=== PATIENT | male | born 1970 | race Caucasian/White ===

== ENCOUNTER 2017-01-04 20:31 | Emergency (ER) | payer BC ==
[2017-01-04 20:40] VITALS: BMI 31.1
--- NOTE | 2017-01-04 20:41 | PDOC ---
History of Present Illness - General History Source: Patient Exam Limitations: No Limitations - History of Present Illness Initial Comments: 01/04/17 20:44 The patient is a 46 year old male with no significant past medical history, who presents to the ED s/p cat bite on right 5th digit last night. Patient states he was unexpectedly bit by his house cat last night. He states his cat is up to date with all its immunizations. Patient complains of chills and 101.7 fever since last night. He had taken Augmentin 875 mg at 6:30 AM and 11 AM this morning with little to no alleviation Patient denies chest pain, headache, dizziness, lightheadedness, nausea, vomiting, diarrhea. Patient denies any other s PCP: Dr. Villalta ([phone]) <Gordy Ceron - Last Filed: 01/04/17 20:44> <Gibson Sanchez - Last Filed: 01/04/17 22:21> - General Chief Complaint: Bite Stated Complaint: BIT BY CAT Past History <Gordy Ceron - Last Filed: 01/04/17 20:44> - Past Medical History Other medical history: DENIES - Immunization History Immunization Up to Date: Yes - Psycho/Social/Smoking Cessation Hx Anxiety: No Suicidal Ideation: No Smoking History: Never smoked Have you smoked in the past 12 months: No Information on smoking cessation initiated: No Hx Alcohol Use: No Drug/Substance Use Hx: No Substance Use Type: None <Gibson Sanchez - Last Filed: 01/04/17 22:21> - Past Medical History Allergies/Adverse Reactions: Allergies Allergy/AdvReac Type Severity Reaction Status Date / Time No Known Allergies Allergy Verified 01/04/17 20:33 Home Medications: Ambulatory Orders NK [No Known Home Medication] 01/04/17 Review of Systems - Review of Systems Comments:: 01/04/17 20:44 GENERAL/CONSTITUTIONAL: + fever. + chills. No weakness. HEAD, EYES, EARS, NOSE AND THROAT: No change in vision. No ear pain or discharge. No sore throat. CARDIOVASCULAR: No chest pain or shortness of breath. RESPIRATORY: No cough, wheezing, or hemoptysis. GASTROINTESTINAL: No nausea, vomiting, diarrhea or constipation. GENITOURINARY: No dysuria, frequency, or change in urination. MUSCULOSKELETAL: No joint or muscle swelling or pain. No neck or back pain. SKIN: + redness and swelling to 5th digit of the right hand. NEUROLOGIC: No headache, vertigo, loss of consciousness, or change in strength/ sensation. ENDOCRINE: No increased thirst. No abnormal weight change. HEMATOLOGIC/LYMPHATIC: No anemia, easy bleeding, or history of blood clots. ALLERGIC/IMMUNOLOGIC: No hives or skin allergy. <Gordy Ceron - Last Filed: 01/04/17 20:44> *Physical Exam - Vital Signs Last Vital Signs Temp Pulse Resp BP Pulse Ox 100.5 F H 108 H 16 148/103 99 01/04/17 20:33 01/04/17 20:33 01/04/17 20:33 01/04/17 20:33 01/04/17 20:33 - Physical Exam Comments: 01/04/17 20:45 GENERAL: Awake, alert, and fully oriented, in no acute distress HEAD: No signs of trauma EYES: PERRLA, EOMI, sclera anicteric, conjunctiva clear ENT: Auricles normal inspection, hearing grossly normal, nares patent, oropharynx clear without exudates. Moist mucosa NECK: Normal ROM, supple, no lymphadenopathy, JVD, or masses LUNGS: Breath sounds equal, clear to auscultation bilaterally. No wheezes, and no crackles HEART: Regular rate and rhythm, normal S1 and S2, no murmurs, rubs or gallops ABDOMEN: Soft, nontender, normoactive bowel sounds. No guarding, no rebound. No masses EXTREMITIES: Redness and swelling to the palmar aspect of the 5th digit of the right hand without any canaval 4 signs of flexor tenosynovitis. No axillary adenopathy and lymphangitis. Rest of extremities is normal. NEUROLOGICAL: Cranial nerves II through XII grossly intact. Normal speech, normal gait SKIN: Warm, Dry, normal turgor, no rashes or lesions noted. <Gordy Ceron - Last Filed: 01/04/17 20:44> - Vital Signs Last Vital Signs Temp Pulse Resp BP Pulse Ox 100.5 F H 108 H 16 148/103 99 01/04/17 20:33 01/04/17 20:33 01/04/17 20:33 01/04/17 20:33 01/04/17 20:33 <Gibson Sanchez - Last Filed: 01/04/17 22:21> ED Treatment Course - LABORATORY CBC & Chemistry Diagram: 01/04/17 20:45 01/04/17 20:45 <Gibson Sanchez - Last Filed: 01/04/17 22:21> *DC/Admit/Observation/Transfer - Attestations Scribe Attestion: 01/04/17 20:46 Documentation prepared by Gordy Ceron, acting as medical accounting clerk for Gibson Sanchez MD. <Gordy Ceron - Last Filed: 01/04/17 20:44> - Attestations Physician Attestion: 01/04/17 20:40 I, Dr. Gibson Sanchez, attest that this document has been prepared under my direction and personally reviewed by me in its entirety. I further attest, that it accurately reflects all work, treatment, procedures and medical decision -making performed by me. <Gibson Sanchez - Last Filed: 01/04/17 22:21> Diagnosis at time of Disposition: Cat bite Qualifiers: Encounter type: sequela Qualified Code(s): W55.01XS - Bitten by cat, sequela - Discharge Dispostion Disposition: HOME Condition at time of disposition: Good - Referrals Referrals: Francois Larson MD [Primary Care Provider] - - Patient Instructions Printed Discharge Instructions: DI for Animal Bites Additional Instructions: Dr. Ramirez- Daisy this happened to you. Continue the Augmentin twice a day. Return to us if worse in any way. Keep using tylenol or motrin to treat your fever. Hope you feel better soon. Best- Dr. Gibson Sanchez
[2017-01-04] MEDS ORDERED: ACETAMINOPHEN 1000 MG/100 ML VIAL (NON FORMULARY) IVPB ONE (20:42)
[2017-01-04] MEDS ORDERED: AMPICILLIN NA/SULBACTAM NA 3 GM in SODIUM CHLORIDE 100 ML IVPB ONE (20:42)
[2017-01-04] MEDS ORDERED: VANCOMYCIN 1,000 MG in DEXTROSE 5%-WATER - 500 ML IVPB ONE (20:42)
[2017-01-04] MEDS ORDERED: SODIUM CHLORIDE 2,000 ML IV STA (20:42)
[2017-01-04] MEDS ORDERED: ACETAMINOPHEN INJECTION 100 ML IVPB ONE (20:50)
[2017-01-04] MEDS ORDERED: AMPICILLIN NA/SULBACTAM NA 3 GM VIAL ONE (20:50)
[2017-01-04] MEDS ORDERED: VANCOMYCIN 1,000 MG VIAL (RESTRICTED TO ID ONLY) ONE (20:50)
[2017-01-04] MEDS ORDERED: ACETAMINOPHEN 500 MG TABLET (FP) ONE (20:51)
[2017-01-04] MEDS ORDERED: ACETAMINOPHEN 500 MG TABLET (FP) PO ONE (20:59)
[2017-01-04 21:03] LABS: BASOPHIL 2.5 % (0-2.0); EOSINOPHIL 1.1 % (0-4.5); MCH 29.7 pg (25.7-33.7); MCHC 34.1 g/dl (32.0-35.9); MEAN CELL VOLUME 87.1 fl (80-96); MEAN PLT VOLUME 8.3 fl (7.5-11.1); NEUTROPHILS 72.2 % (42.8-82.8); PLATELET COUNT 207 K/MM3 (134-434); RDW 12.4 % (11.9-15.9); WHITE BLOOD COUNT 7.5 K/mm3 (4.0-10.8)
[2017-01-04 21:23] LABS: ALK PHOS 59 U/L (32-92); ANION GAP 9 (8-16); BILIRUBIN,TOTAL 0.6 mg/dl (0.2-1.0); CALCIUM 9.7 mg/dl (8.4-10.2); CO2 27 mmol/L (22-28); CREATININE 1.1 mg/dl (0.6-1.3); GLUCOSE,RANDOM 146 mg/dl (74-106); SGOT/AST 29 U/L (10-42); SGPT/ALT 56 U/L (10-40); TOT PROT 7.8 g/dl (6.4-8.3)
[2017-01-04 22:33] VITALS: BP 129/82; PULSE 120; TEMP 99.5
== END 2017-01-04 22:47 | disposition home or self-care (01) ==
LOC: FER 20:31
PROC: 3E03329 Introduction of Other Anti-infective into Peripheral Vein, Percutaneous Approach (ICD-10-PCS; principal; 2017-01-04)
PROC: 3E033NZ Introduction of Analgesics, Hypnotics, Sedatives into Peripheral Vein, Percutaneous Approach (ICD-10-PCS; 2017-01-04)
DX: S61.256A Open bite of right little finger without damage to nail, initial encounter (principal); W55.01XA Bitten by cat, initial encounter; Y93.9 Activity, unspecified; Y92.009 Unspecified place in unspecified non-institutional (private) residence as the place of occurrence of the external cause
CPT/HCPCS: 36415; 80053; 85025; 87040; 99281-25